=== PATIENT | male | born 1955 | race Caucasian/White ===

== ENCOUNTER 2023-06-01 14:25 | Observation (INO) | payer BC, OTHER ==
[2023-06-01] MEDS: SODIUM CHLORIDE 0.9% 500 ML INFUS.BAG IV ONE (15:26)
[2023-06-01 15:31] LABS: BASO % 0.3 % (0-2.0); EOS % 0.1 % (0-4.5); HEMATOCRIT 35.6 % (35.4-49); HEMOGLOBIN 11.6 GM/dL (11.7-16.9); LYMPH % 15.5 % (8-40); MCH 30.6 pg (25.7-33.7); MCHC 32.5 g/dl (32.0-35.9); MEAN PLT VOLUME 6.3 fl (7.5-11.1); MONO % 3.6 % (3.8-10.2); NEUT % 80.5 % (42.8-82.8); PLATELET COUNT 422 10^3/uL (134-434); RBC 3.79 M/mm3 (4.00-5.60); RDW 13.4 % (11.9-15.9); WHITE BLOOD COUNT 11.8 K/mm3 (4.0-10.0)
[2023-06-01 15:43] LABS: PH,URINE 5.5 (5.0-8.0); URINE APPEARANCE CLEAR; URINE BILIRUBIN NEGATIVE (NEGATIVE); URINE COLOR YELLOW; URINE GLUCOSE (UA) NEGATIVE (NEGATIVE); URINE KETONE TRACE (NEGATIVE); URINE LEUK ESTERASE NEGATIVE (NEGATIVE); URINE NITRITE NEGATIVE (NEGATIVE); URINE PROTEIN NEGATIVE (NEGATIVE); URINE UROBILINOGEN 0.2 mg/dL (0.2-1.0)
[2023-06-01 16:00] LABS: POTASSIUM 4.4 mmol/L (3.5-5.1)
[2023-06-01 16:02] LABS: BLOOD UREA NITROGEN 29.9 mg/dL (7-18); CALCIUM 8.8 mg/dL (8.5-10.1)
[2023-06-01 16:05] LABS: CREATININE 1.3 mg/dL (0.55-1.3)
[2023-06-01 16:07] LABS: BILIRUBIN,TOTAL 0.2 mg/dL (0.2-1)
[2023-06-01] MEDS ORDERED: KETOROLAC TROMETHAMINE 15 MG/ML VIAL IVPUSH PRN (18:03)
[2023-06-01] MEDS ORDERED: ACETAMINOPHEN 500 MG TABLET (FP) PO PRN (18:04)
[2023-06-01] MEDS ORDERED: KETOROLAC TROMETHAMINE 15 MG/ML VIAL ONE (18:43)
[2023-06-01] MEDS: KETOROLAC TROMETHAMINE 15 MG/ML VIAL IVPUSH ONE (19:03)
[2023-06-01] MEDS: LACTATED RINGERS SOLUTION 1,000 ML/1,000 ML INFUS.BAG IV SCH (19:03)
[2023-06-01 20:11] VITALS: RESP 18
[2023-06-01] MEDS: ALBUTEROL SO4 2.5/IPRATROPIUM 0.5 INH SOL 3 ML VIAL.NEB. NEB SCH (21:05)
[2023-06-01] MEDS ORDERED: QUEtiapine FUMARATE 25 MG TABLET ONE (21:42)
[2023-06-01] MEDS: QUEtiapine FUMARATE 50 MG TABLET PO SCH (22:40)
[2023-06-01] MEDS: HEPARIN NA (PORCINE) 5,000 UNITS/ML 1ML VIAL SQ SCH (22:40)
[2023-06-01] MEDS: VENLAFAXINE HCL 150 MG E.R. CAPSULE PO SCH (22:41)
[2023-06-01 23:18] VITALS: BMI 21.1
[2023-06-02] MEDS ORDERED: FLUTICASONE/UMECLIDIN/VILANTER(100-62.5-25 TRELEGY ELLIPTA) INAHLER IH PRN ×2 (08:30→11:05)
[2023-06-02] MEDS: AZITHROMYCIN IVPB 500 MG in DEXTROSE 5%-WATER - 250 ML IVPB ONE (08:46)
[2023-06-02] MEDS: MIRTAZAPINE 15 MG TABLET (FP) PO SCH (09:10)
[2023-06-02] MEDS: predniSONE 20 MG TABLET (UD) PO SCH (09:10)
[2023-06-02] MEDS: RIVAROXABAN 20 MG TABLET PO SCH (09:10)
[2023-06-02] MEDS: AZITHROMYCIN 250 MG TABLET PO SCH (09:10)
[2023-06-02 09:21] VITALS: BP 99/46; PULSE 90; TEMP 98.5
[2023-06-02] MEDS ORDERED: CEFTRIAXONE 1 GM in DEXTROSE 5%-WATER - 50 ML IVPB SCH (10:00)
[2023-06-02] MEDS ORDERED: VENLAFAXINE HCL 75 MG E.R. CAPSULES PO SCH (22:00)
== END 2023-06-02 13:28 | disposition home or self-care (01) ==
LOC: JER 14:25 → JERBED 17:50 → J5S 20:40
PROVIDERS: ADMIT Internal Medicine; ATTEND Internal Medicine
PROC: 3E0F7GC Introduction of Other Therapeutic Substance into Respiratory Tract, Via Natural or Artificial Opening (ICD-10-PCS; principal; 2023-06-01)
PROC: 3E023GC Introduction of Other Therapeutic Substance into Muscle, Percutaneous Approach (ICD-10-PCS; 2023-06-01)
PROC: 3E0333Z Introduction of Anti-inflammatory into Peripheral Vein, Percutaneous Approach (ICD-10-PCS; 2023-06-01)
PROC: 3E0337Z Introduction of Electrolytic and Water Balance Substance into Peripheral Vein, Percutaneous Approach (ICD-10-PCS; 2023-06-01)
DX: U07.1 COVID-19 (principal); R06.00 Dyspnea, unspecified; J44.9 Chronic obstructive pulmonary disease, unspecified; M06.9 Rheumatoid arthritis, unspecified; Z86.718 Personal history of other venous thrombosis and embolism; J90 Pleural effusion, not elsewhere classified; F99 Mental disorder, not otherwise specified; R07.89 Other chest pain
CPT/HCPCS: 0241U-QW; 36415; 71045-TC-FY; 71275-TC; 80053; 81003; 83735; 84484; 85025; 87086; 93005; 93010; 94640; 96361; 96372; 96374; 99285-25; G0378; J1644; Q9967